=== PATIENT | male | born 1980 | race Caucasian/White ===

== ENCOUNTER 2021-03-14 13:19 | Emergency (ER) | payer BC ==
--- NOTE | 2021-03-14 13:42 | ED Physician Documentation ---
PD HPI CHEST PAIN - Stated complaint Stated Complaint: CHEST/NECK PX - Chief complaint Chief Complaint: Cardiac - History obtained from History obtained from: Patient - Additional information Additional information: 40-year-old gentleman with history of T7 spinal cord injury in 2008 presents with waxing and waning chest and neck discomfort for the last 5 days. He notes that usually during the day but it goes away at night. It is in the left anterior chest and sometimes the left neck. There is no associated radiation to the back and no shortness of breath, nausea, or sweats. Does not notice any change with eating. Review of Systems Ten Systems: 10 systems reviewed and negative Constitutional: denies: Fever, Chills Cardiac: reports: Reviewed and negative Respiratory: reports: Reviewed and negative PD PAST MEDICAL HISTORY - Allergies Allergies/Adverse Reactions: Allergies Allergy/AdvReac Type Severity Reaction Status Date / Time heparin Allergy Unknown Verified 03/14/21 13:30 metoclopramide [From Reglan] Allergy Unknown Verified 03/14/21 13:30 Penicillins Allergy Edema Verified 03/14/21 13:30 - Social History Does the pt smoke?: No Smoking Status: Never smoker PD ED PE NORMAL - Vitals Vital signs reviewed: Yes - General General: Alert and oriented X 3, No acute distress, Other (Wheelchair-bound) - HEENT HEENT: PERRL, EOMI - Neck Neck: Supple, no meningeal sign, No bony TTP - Cardiac Cardiac: RRR, No murmur, Strong equal pulses (Equal radial pulses) - Respiratory Respiratory: No respiratory distress, Clear bilaterally - Abdomen Abdomen: Non tender - Derm Derm: Normal color, Warm and dry, No rash - Neuro Neuro: Alert and oriented X 3, Normal speech Results - Vitals Vitals: Vital Signs - 24 hr 03/14/21 03/14/21 13:23 13:36 Temperature 36 C L 36.5 C Heart Rate 73 73 Respiratory 17 17 Rate Blood Pressure 150/90 H 150/70 H O2 Saturation 100 100 Oxygen O2 Source Room air - EKG (time done) 1323 Rate: Rate (enter#) (71) Rhythm: NSR [place]: Normal Intervals: Normal CO QRS: Normal Ischemia: Normal ST segments - Labs Labs: Laboratory Tests 03/14/21 03/14/21 03/14/21 13:50 13:50 13:50 WBC 6.4 RBC 4.37 L Hgb 12.9 L Hct 39.3 L MCV 89.9 MCH 29.5 MCHC 32.8 RDW 12.9 Plt Count 309 MPV 9.3 Neut # (Auto) 3.9 Lymph # (Auto) 1.4 L [place] # (Auto) 0.7 Eos # (Auto) 0.3 Baso # (Auto) 0.0 Absolute Nucleated RBC 0.00 Nucleated RBC % 0.0 D-Dimer 218.4 Sodium 137 Potassium 4.0 Chloride 100 L Carbon Dioxide 27 Anion Gap 10.0 BUN 20 Creatinine 0.8 Estimated GFR (MDRD) 107 Glucose 91 Calcium 9.2 Total Bilirubin 0.7 AST 14 ALT 22 Alkaline Phosphatase 67 Troponin I High Sens Total Protein 7.6 Albumin 4.0 Globulin 3.6 Albumin/Globulin Ratio 1.1 Lipase 28 03/14/21 13:50 WBC RBC Hgb Hct MCV MCH MCHC RDW Plt Count MPV Neut # (Auto) Lymph # (Auto) [place] # (Auto) Eos # (Auto) Baso # (Auto) Absolute Nucleated RBC Nucleated RBC % D-Dimer Sodium Potassium Chloride Carbon Dioxide Anion Gap BUN Creatinine Estimated GFR (MDRD) Glucose Calcium Total Bilirubin AST ALT Alkaline Phosphatase Troponin I High Sens 5.0 Total Protein Albumin Globulin Albumin/Globulin Ratio Lipase PD MEDICAL DECISION MAKING - ED course ED course: 40-year-old gentleman with T7 paraplegia presents with atypical several days worth of chest pain. PE is considered given the paraplegia, but D-dimer was negative. No evidence of ischemia on EKG or troponin. Single view chest x-ray interpreted contemporaneously by me was normal. Departure - Departure Disposition: 01 Home, Self Care Clinical Impression: Chest pain Qualifiers: Chest pain type: unspecified Qualified Code(s): R07.9 - Chest pain, unspecified Condition: Good Record reviewed to determine appropriate education?: Yes Instructions: ED Chest Pain NonCardiac Comments: There is no evidence of heart disease, and a D-dimer screening test was negative which rules out pulmonary embolism. Return for new or worsening symptoms. Follow-up with your primary care physician, next available appointment.
[2021-03-14 13:58] LABS: BASOPHILS % (AUTO) 0.6 %; EOSINOPHILS # (AUTO) 0.3 10^3/uL (0.0-0.7); HCT - HEMATOCRIT 39.3 % (42.0-52.0); HGB - HEMOGLOBIN 12.9 g/dL (14.0-18.0); LYMPHOCYTES # (AUTO) 1.4 10^3/uL (1.5-3.5); LYMPHOCYTES % (AUTO) 22.2 %; MEAN CORPUSCULAR HEMOGLOBIN 29.5 pg (27.0-31.0); MEAN CORPUSCULAR HGB CONC 32.8 g/dL (32.0-36.0); MEAN CORPUSCULAR VOLUME 89.9 fL (80.0-94.0); MEAN PLATELET VOLUME 9.3 fL (7.4-11.4); MONOCYTES # (AUTO) 0.7 10^3/uL (0.0-1.0); NEUTROPHILS # (AUTO) 3.9 10^3/uL (1.5-6.6); NEUTROPHILS % (AUTO) 60.9 %; PLT - PLATELET COUNT 309 10^3/uL (130-450); RED BLOOD COUNT 4.37 10^6/uL (4.70-6.10); RED CELL DISTRIBUTION WIDTH 12.9 % (12.0-15.0); WHITE BLOOD COUNT 6.4 x10^3/uL (4.8-10.8)
--- NOTE | 2021-03-14 14:10 | XRAY Report ---
PROCEDURE: Chest 1 View X-Ray INDICATIONS: Chest Pain TECHNIQUE: One view of the chest was acquired. COMPARISON: None FINDINGS: Surgical changes and devices: Thoracic spine fixation hardware is seen. Lungs and pleura: An incomplete inspiratory result is noted, with low lung volumes and crowding of t he vascular markings. No focal infiltrates are seen. No large pneumothorax or large pleural effusion can be seen. Mediastinum: Mediastinal contours appear normal. Heart size is normal. Bones and chest wall: No suspicious bony lesions. Overlying soft tissues appear unremarkable. IMPRESSION: Portable chest within normal limits for age, with note made of thoracic spine fixation hardware. Reviewed by: Gasper Walsh MD on 03/14/2021 1:08 PM [facility] Approved by: Gasper Walsh MD on 03/14/2021 1:08 PM [facility] Station ID: [id number]
[2021-03-14 14:22] LABS: ALBUMIN/GLOBULIN RATIO 1.1 (1.0-2.2); BILIRUBIN,TOTAL 0.7 mg/dL (0.2-1.0); CALCIUM 9.2 mg/dL (8.5-10.3); CREATININE 0.8 mg/dL (0.6-1.2); TOTAL PROTEIN 7.6 g/dL (6.7-8.2)
[2021-03-14 14:48] VITALS: BP 130/98
== END 2021-03-14 14:48 | disposition home or self-care (01) ==
LOC: ED 13:19
DX: R07.9 Chest pain, unspecified (principal); M54.2 Cervicalgia; G82.20 Paraplegia, unspecified; S24.103S Unspecified injury at T7-T10 level of thoracic spinal cord, sequela; X58.XXXS Exposure to other specified factors, sequela
CPT/HCPCS: 36415; 80053; 83690; 84484; 85025; 85379; 93005; 99284